=== PATIENT | female | born 1970 | race Caucasian/White ===

== ENCOUNTER 2017-05-24 10:35 | Emergency (ER) | payer MEDICAID ==
[~2017-05-24] VITALS: Ht 157.5 cm; Wt 91.9 kg
[2017-05-24] MEDS ORDERED: AMOX-419 PO (11:18)
[2017-05-24] MEDS ORDERED: GUAI1TBM19 PO (11:19)
[2017-05-24 11:36] VITALS: BP 147/83
== END 2017-05-24 11:38 | disposition home or self-care (01) ==
LOC: ER 10:36
DX: J01.10 Acute frontal sinusitis, unspecified (principal); G89.29 Other chronic pain; F17.200 Nicotine dependence, unspecified, uncomplicated
CPT/HCPCS: 99283